=== PATIENT | female | born 1995 | race Caucasian/White ===

== ENCOUNTER 2022-04-23 13:48 | Emergency (ER) | payer BC ==
[~2022-04-23] VITALS: Ht 175.3 cm; Wt 86.2 kg
--- NOTE | 2022-04-23 13:59 | NUR ---
TO ER BED 9. BLOOD NOTED IN HER VOMITOUS THIS MORNING, IN REHAB FOR DETOX. VITALS ARE WITHIN NORMAL LIMITS. AWAITING MD CEULLO.
--- NOTE | 2022-04-23 14:10 | NUR ---
IV ESTBLIHASED L AC 20G. LABS DRAWN AND COLLECTED AT BEDSIDE
[2022-04-23 14:25] LABS: BASOPHILS % (AUTO) 0.5 % (0.0-2.0); EOSINOPHILS % (AUTO) 5.7 % (0.0-6.0); HEMATOCRIT 36 % (33-45); HEMOGLOBIN 12.4 g/dL (11.5-14.8); LYMPHOCYTES % (AUTO) 28.9 % (20.0-44.0); MEAN CORPUSCULAR HGB CONC 34 g/dl (31.0-36.0); MEAN CORPUSCULAR VOLUME 77 fL (82-100); MONOCYTES # (AUTO) 0.5 K/uL (0.1-1.30); MONOCYTES % (AUTO) 7.3 % (2.0-12.0); NEUTROPHILS # (AUTO) 4.1 K/uL (1.8-8.9); NEUTROPHILS % (AUTO) 57.6 % (43.0-81.0); PLATELET COUNT (AUTO) 311 K/uL (150-450); RED BLOOD CELL COUNT(AUTO) 4.72 MIL/uL (4.0-5.2); WHITE BLOOD COUNT (AUTO) 7.1 K/uL (4.3-11.0)
[2022-04-23 15:14] LABS: CALCIUM, SERUM 8.2 mg/dL (8.5-10.1); CREATININE 0.9 mg/dL (0.6-1.3); POTASSIUM 3.9 mmol/L (3.5-5.1)
[2022-04-23 15:20] LABS: ALBUMIN 3.4 g/dL (3.4-5.0); BILIRUBIN,DIRECT 0.1 mg/dL (0.0-0.2); BILIRUBIN,TOTAL 0.3 mg/dL (0.2-1.0)
[2022-04-23] MEDS ORDERED: OMEP40CA21 PO (15:20)
--- NOTE | 2022-04-23 15:54 | NUR ---
[facility] [phone], [facility] [phone]
--- NOTE | 2022-04-23 16:00 | NUR ---
CALLED PT NICOLE AGUAYO [phone] TO GIVE REPORT AND INFORMED HER PT IS BEING DISCHARGE BACK TO THE [facility].
--- NOTE | 2022-04-23 16:06 | NUR ---
CALLED [facility] AND SET UP BLS TRANSPORT ETA [phone]
[2022-04-23 16:41] VITALS: BP 124/81
--- NOTE | 2022-04-23 16:41 | NUR ---
TRANSPORTATION ARRIVED TO TAKE PT BACK TO THE [facility]. IV REMOVED, PRESSURE APPLIED, NO BLEEDING NOTED. PT EXPLAINED DISCHARGED INSTRUCTION AND UNDERSTOOD. PRESCRIPTIOB GIVEN TO PARAMEDICS TO GIVE TO FACILTY. PT LEAVING THE ER IN STABLE CONDITION, ABLE TO AMBULATE ON HER OWN TO [facility]ACH[facility]'S GURNEY.
== END 2022-04-23 16:55 ==
LOC: ER 14:01
DX: K92.0 Hematemesis (principal); Z88.8 Allergy status to other drugs, medicaments and biological substances; Z79.899 Other long term (current) drug therapy
CPT/HCPCS: 36415; 71045-TC; 80048-TC; 80076-TC; 84702-TC; 85025-TC; 85730-TC; 86850-TC